=== PATIENT | male | born 1955 | race Caucasian/White ===

== ENCOUNTER 2018-12-04 10:44 | Observation (INO) ==
--- NOTE | 2018-12-04 11:24 | Emergency Department Note ---
Disposition Clinical Impression: Congestive heart failure Qualifiers: Heart failure type: unspecified Heart failure chronicity: acute on chronic Qualified Code(s): I50.9 - Heart failure, unspecified Disposition: Admitted As Inpatient Condition: Fair Referrals: NONE,PCP [Non-Partnered Physician] - Forms: ED Satisfaction Letter General Adult HPI - General Chief complaint: ED Shortness of Breath/Dyspnea Stated complaint: Pedal edema & short of breath Time Seen by Provider: 12/04/18 11:02 Source: patient Mode of arrival: private vehicle Limitations: other Nursing Notes Reviewed: Yes Vital Signs Reviewed: Yes - History of Present Illness HPI Narrative: Patient presents to the ED complaining of shortness of breath and lower extremity swelling. Patient states his eczema and short of breath for many weeks. He was apparently diagnosed with bronchitis in October. He was seen he re in this ED on November 12 for shortness of breath and diagnosed with a COPD exacerbation and possible pneumonia. He was started on Augmentin which she has since completed. He states he feels like his breathing improved initially but has now worsened again. He is short of breath often even at rest. States he will only have to change positions if you like he can catch his breath. He cannot lie flat for any length of time. He has been using his inhaler without improvement. He reports a dry cough and some occasional sneezing and runny nose. No fever or chills. He notices swelling in his legs starting proximally 10 days ago, first in the left leg and then in the right. He has been taking [id number] water pills over the past several days without improvement. 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 He did see his PCP a few days after his last ER visit and only had trace swelling in the left leg at that time and states his PCP was not concerned. He has also followed up with Dr. Boyle of vascular surgery who is planning on doing a catheterization and possible stent placement in his left leg on 12/12 due to peripheral arterial disease. He said he had a similar procedure performed on the right. He is not aware of a diagnosis of CHF although records show he does have cardiomyopathy. He is not on any prescribed diuretics, only Imdur and metoprolol. Cardiac history is notable for cardiomyopathy and CAD with prior CABG in 2014. He also has an AICD/pacemaker. Pain Scale: 0 - Related Data Home Medications Medication Instructions Recorded Confirmed Duloxetine HCl [Cymbalta] 60 mg PO DAILY 04/21/15 12/04/18 Glimepiride [Amaryl] 4 mg PO BID 04/21/15 12/04/18 Loratadine [Claritin] 10 mg PO DAILY 04/21/15 12/04/18 Oxaprozin [Daypro] 600 mg PO TID PRN 04/21/15 12/04/18 OxyCODONE Immed Rel [Roxicodone] 10 - 325 mg PO Q8HR PRN 04/21/15 12/04/18 Promethazine [Phenergan] 25 mg PO Q6HR PRN 04/21/15 12/04/18 Zolpidem [Ambien] 10 mg PO HS PRN 04/21/15 12/04/18 Fluticasone Propionate Nasal 1 spray NS DAILY PRN 04/24/15 12/04/18 [Flonase] Aspirin Enteric Coated [Aspirin EC] 325 mg PO DAILY 07/23/15 12/04/18 Metoprolol XL (24 HR) Succ [Toprol 100 mg PO BID 07/23/15 12/04/18 Xl] Clopidogrel [Plavix] 75 mg PO DAILY 03/09/17 12/04/18 Dulaglutide [Trulicity] 0.75 mg SQ QWEEK 03/09/17 12/04/18 Isosorbide MONOnitrate (24 HR) 30 mg PO DAILY 06/14/17 12/04/18 [Imdur] Nitroglycerin [Nitrostat] 0.4 mg SL Q3-5MIN PRN 06/14/17 12/04/18 Pregabalin [Lyrica] 75 mg PO BID 06/14/17 12/04/18 Tamsulosin HCl [Flomax] 0.4 mg PO DAILY 06/14/17 12/04/18 Tizanidine HCl [Zanaflex] 1 - 2 tab PO TID PRN 06/14/17 12/04/18 Albuterol Sulfate [Ventolin Hfa] 2 puff IH Q4H 12/06/17 12/04/18 Anagrelide HCl [Agrylin] 0.5 mg PO DAILY 12/06/17 12/04/18 Atorvastatin Calcium [Lipitor] 20 mg PO DAILY 12/06/17 12/04/18 Calcipotriene/Betamethasone 60 gm TP DAILY PRN 12/06/17 12/04/18 [Taclonex 0.005%-0.064% Suspens] Hydroxyurea [Hydrea] 500 mg PO BID 12/06/17 12/04/18 Amoxicillin/Clavulanate [Augmentin] 875 mg PO BIDWM 12/04/18 12/04/18 Previous Rx's Medication Instructions Recorded Metformin HCl [Fortamet] 1,000 mg PO BID #0 06/14/17 Guaifenesin [Mucinex] 1,200 mg PO BID #20 tbbp.12hr 11/12/18 Allergies Allergy/AdvReac Type Severity Reaction Status Date / Time gabapentin AdvReac Confusion Verified 12/27/17 11:34 Constitutional: Denies: fever, chills, weakness, weight change Eyes: Denies: eye pain, eye discharge, vision change ENT ED: Denies: ear pain, throat pain, dental pain, hearing loss, epistaxis, congestion, dysphagia Cardiovascular: Reports: edema. Denies: chest pain, palpitations, dyspnea on exertion, syncope Respiratory: Reports: dyspnea. Denies: cough, wheezes, hemoptysis, stridor Gastrointestinal: Denies: abdominal pain, nausea, vomiting, diarrhea, constipation, hematemesis, melena, hematochezia Genitourinary: Denies: urgency, dysuria, frequency, hematuria Musculoskeletal: Denies: back pain, neck pain, arthralgia, myalgia Integumentary: Denies: rash, abrasion, lesions Neurological: Denies: headache, weakness, numbness, paresthesias, confusion, abnormal gait, vertigo Psychiatric: Denies: anxiety, depression, suicidal thoughts, homicidal thoughts, auditory hallucinations, visual hallucinations Endocrine: Denies: fatigue Hematological/Lymphatic: Denies: easy bleeding, easy bruising Allergic/Immunologic: Denies: facial swelling, urticaria Past Medical History - Past Medical History Medical history: Reports: arthritis, cardiomyopathy, COPD, coronary artery disease, diabetes, GERD, hyperlipidemia, hypertension, malignancy, myocardial infarction, osteoporosis, peripheral artery disease, renal disease, other Surgical history: Reports: coronary bypass (CABG), orthopedic, other (Back surgery, knee surgery, right shoulder surgery), pacemaker/AICD, other Psychiatric history: Reports: anxiety, depression, panic disorder - Social History Smoking Status: Heavy tobacco smoker Smokeless Tobacco Status: Yes (occasional) Alcohol use: Reports: rarely Drug use: Reports: none Physical Exam - General Limitations: other General appearance: alert, in no apparent distress - Head Head exam: atraumatic, normocephalic, normal inspection - Eye Eye exam: Present: normal appearance, PERRL, EOMI - ENT ENT exam: normal exam, normal oropharynx, mucous membranes moist - Neck Neck exam: Present: normal inspection, full ROM, trachea midline - Chest Chest inspection: Present: normal inspection, symmetric chest wall rise - Respiratory Respiratory exam: Present: other (crackles at bases) - Cardiovascular Cardiovascular exam: Present: regular rate, normal rhythm, normal heart sounds - Abdominal Exam Abdominal exam: Present: soft, Non-Tender. Absent: tenderness, distention, guarding, rebound, rigidity - Extremities Exam Extremities exam: Present: normal inspection, full ROM, pedal edema (2+ oxana aterally). Absent: tenderness - Psychiatric Psychiatric exam: Present: normal affect, normal mood - Skin Skin exam: Present: warm, dry, intact, normal color Course Course Narrative: Patient presents to the ED with chronic shortness of breath that has been worsening recently new onset lower extremity edema concerning for CHF given patient's history and clinical picture.. On arrival he is afebrile, hemodynamic stable and nontoxic in appearance. Review of records shows his last echo and cardiac catheterization were both in April 2015 which were followed by his CABG 5. At that time echo showed an EF of 35% with left ventricular dilatation and global hypokinesis. An echo in November 2016 shows an EF of 30% with severe LV systolic dysfunction mild diastolic LV dysfunction and moderate LV dilatation. Will obtain chest x-ray, EKG and lab work. Suspect patient will likely need admission for diuresis. - Reevaluation(s) Reevaluation #1: Chest x-ray does show pleural effusions and pulmonary edema. BNP is over thousand. Troponin slightly elevated at 0.04 patient has no chest pain I suspect this is simple strain from congestive heart failure. EKG does not show any ischemic changes. Discussed with patient the need for admission and IV diuresis and he is in agreement. I spoke to hospice vocational evaluator, Dr. Hayes who has agreed to admit the patient. Time: 12:39 Vital Signs Temperature 97.3 F L 12/04/18 10:47 Pulse Rate 103 12/04/18 10:47 Respiratory Rate 18 12/04/18 10:47 Blood Pressure 133/82 12/04/18 10:47 O2 Sat by Pulse Oximetry 95 12/04/18 10:47 Temperature 97.3 F L 12/04/18 10:47 Pulse Rate 99 12/04/18 11:05 Respiratory Rate 16 12/04/18 11:05 Blood Pressure 122/89 12/04/18 11:05 O2 Sat by Pulse Oximetry 96 12/04/18 11:05 Oxygen Delivery Oxygen Delivery Room Air Medical Decision Making - Medical Records Medical records reviewed: Yes I reviewed the patient's medical records. - Lab Data Lab results reviewed: Yes I reviewed the patient's lab results. Result diagrams: 12/04/18 11:39 12/04/18 11:39 Lab Results 12/04/18 12/04/18 12/04/18 Range/Units 11:39 11:39 11:39 WBC 8.2 (4.3-11.1) K/mcL RBC 5.49 (4.19-5.50) M/mcL Hgb 16.7 (12.9-16.9) g/dL Hct 49.3 (37.5-50.1) % MCV 89.8 (83.0-100.0) fL MCH 30.4 (28.0-33.3) pg MCHC 33.9 (31.6-35.5) g/dL RDW 13.3 (11.5-14.5) % Plt Count 269 (140-400) K/mcL MPV 10.1 (9.4-12.4) fL Immature Gran % 0.5 (0-4) % Seg Neutrophils % 76.2 % Lymphocytes % 15.2 % Monocytes % 6.7 % Eosinophils % 0.9 % Basophils % 0.5 % Neutrophils # 6.3 (1.6-8.9) K/mcL Lymphocytes # 1.3 (0.6-4.6) K/mcL Monocytes # 0.6 (0.0-1.3) K/mcL Eosinophils # 0.1 (0.0-0.6) K/mcL Basophils # 0.0 (0.0-0.2) K/mcL Sodium 128 L (136-145) mEq/L Potassium 4.9 (3.5-5.1) mEq/L Chloride 95 L (98-107) mEq/L Carbon Dioxide 25 (23-29) mEq/L BUN 15 (8-23) mg/dL Creatinine 0.93 (0.70-1.30) mg/dL Est GFR ( Amer) > 60 (> 60) Est GFR (Non-Af Amer) > 60 (> 60) BUN/Creatinine Ratio 16 (6-26) Glucose 351 H (70-105) mg/dL Calculated Osmolality 281 (280-300) Calcium 9.3 (8.6-10.3) mg/dL Troponin I 0.04 H* (< 0.04) ng/mL B-Natriuretic Peptide (Less than 100) pg/mL 12/04/18 Range/Units 11:39 WBC (4.3-11.1) K/mcL RBC (4.19-5.50) M/mcL Hgb (12.9-16.9) g/dL Hct (37.5-50.1) % MCV (83.0-100.0) fL MCH (28.0-33.3) pg MCHC (31.6-35.5) g/dL RDW (11.5-14.5) % Plt Count (140-400) K/mcL MPV (9.4-12.4) fL Immature Gran % (0-4) % Seg Neutrophils % % Lymphocytes % % Monocytes % % Eosinophils % % Basophils % % Neutrophils # (1.6-8.9) K/mcL Lymphocytes # (0.6-4.6) K/mcL Monocytes # (0.0-1.3) K/mcL Eosinophils # (0.0-0.6) K/mcL Basophils # (0.0-0.2) K/mcL Sodium (136-145) mEq/L Potassium (3.5-5.1) mEq/L Chloride (98-107) mEq/L Carbon Dioxide (23-29) mEq/L BUN (8-23) mg/dL Creatinine (0.70-1.30) mg/dL Est GFR ( Amer) (> 60) Est GFR (Non-Af Amer) (> 60) BUN/Creatinine Ratio (6-26) Glucose (70-105) mg/dL Calculated Osmolality (280-300) Calcium (8.6-10.3) mg/dL Troponin I (< 0.04) ng/mL B-Natriuretic Peptide 1405 H (Less than 100) pg/mL - Radiology Data Radiology results reviewed: Yes I reviewed the patient's radiology results. ITS Impressions Chest X-Ray 12/04/18 11:23 IMPRESSION: No substantial change from 11/12/2018. Pulmonary edema suspected with right larger than left pleural effusions. D/ / Chacho Hall MD / Chacho Hall MD Interpreting Provider: Chacho Hall MD - EKG Data EKG #1 EKG attestation: Yes I reviewed and interpreted this EKG. EKG shows normal: sinus rhythm Rate: normal Rhythm: NSR When compared to previous EKG there are: no significant changes
[2018-12-04 11:49] LABS: Basophils % 0.5 %; Eosinophils # 0.1 K/mcL (0.0-0.6); Eosinophils % 0.9 %; Hematocrit 49.3 % (37.5-50.1); Hemoglobin 16.7 g/dL (12.9-16.9); Immature Granulocytes % 0.5 % (0-4); Lymphocytes # 1.3 K/mcL (0.6-4.6); Lymphocytes % 15.2 %; Mean Corpuscular HGB Conc 33.9 g/dL (31.6-35.5); Mean Corpuscular Hemoglobin 30.4 pg (28.0-33.3); Mean Corpuscular Volume 89.8 fL (83.0-100.0); Mean Platelet Volume 10.1 fL (9.4-12.4); Monocytes # 0.6 K/mcL (0.0-1.3); Monocytes % 6.7 %; Neutrophils # 6.3 K/mcL (1.6-8.9); Platelet Count 269 K/mcL (140-400); Red Blood Count 5.49 M/mcL (4.19-5.50); Red Cell Distribution Width 13.3 % (11.5-14.5); Segmented Neutrophils % 76.2 %
[2018-12-04 12:36] LABS: BUN/Creatinine Ratio 16 (6-26); Blood Urea Nitrogen 15 mg/dL (8-23); Calcium 9.3 mg/dL (8.6-10.3); Carbon Dioxide 25 mEq/L (23-29); Chloride 95 mEq/L (98-107); Glucose 351 mg/dL (70-105); Osmolality,Calculated 281 (280-300); Potassium 4.9 mEq/L (3.5-5.1); Sodium 128 mEq/L (136-145); eGFR For Non-African Americans > 60 (> 60)
[2018-12-04] MEDS ORDERED: Naloxone 0.4 MG/ML INJ IVP PRN ×2 (12:44→16:08)
[2018-12-04] MEDS ORDERED: Furosemide 20 MG/2 ML VIAL IVP ONE (12:45)
[2018-12-04] MEDS ORDERED: D5% in Water 1,000 ML IVC PRN ×2 (12:51→16:08)
[2018-12-04] MEDS ORDERED: *HR* Dextrose 50 % in Water (Syg) 50 ML SYRINGE IVP PRN (12:51)
[2018-12-04] MEDS ORDERED: Dextrose Gel 15 GM/37.5 ML TUBE PO PRN ×4 (12:51→16:08)
[2018-12-04] MEDS ORDERED: Diclofenac Sodium (24 HR) 100 MG TABLET PO PRN (16:08)
[2018-12-04] MEDS ORDERED: BETAMETHASONE TP PRN (16:08)
[2018-12-04] MEDS ORDERED: *HR* OxyCODONE Immed Rel 15 MG TABLET PO PRN (16:08)
[2018-12-04] MEDS ORDERED: Dulaglutide [Trulicity] 0.75 MG SQ SCH (16:08)
[2018-12-04] MEDS ORDERED: *HR* Dextrose 50 % in Water (Vial) 50 ML VIAL IVP PRN (16:08)
[2018-12-04] MEDS ORDERED: Fluticasone Propionate Nasal 50 MCG/SPRAY BOTTLE NS PRN (16:08)
[2018-12-04] MEDS ORDERED: CALCIPOTRIENE TP PRN (16:08)
[2018-12-04] MEDS ORDERED: Nitroglycerin 0.4 MG TAB.SUBL SL SCH (16:08)
--- NOTE | 2018-12-04 16:18 | Electrocardiograph Report ---
[place] [id number] Test Date: 2018-12-04 Pat Name: Lisette Oliver Department: EDP-12 Room: [facility] Gender: M [employer]visor [employer]: : 1955 Requested By: Jennifer Palacios Order Number: [id number] Reading MD: Gabriela Burr Measurements Intervals [place] Rate: 98 P: 47 [place]: 175 QRS: 88 QRSD: 102 T: 106 QT: 354 QTc: 452 Interpretive Statements Sinus rhythm Borderline right axis deviation Probable LVH with secondary repol abnrm Electronically Signed On 12-04-2018 16:17:25 EDT by Gabriela Burr
[2018-12-04] MEDS ORDERED: Insulin LISPRO 300 UNITS/3 ML VIAL SQ SCH ×3 (16:30→21:00)
[2018-12-04] MEDS: Insulin LISPRO 300 UNITS/3 ML VIAL SQ SCH (18:03)
[2018-12-04] MEDS ORDERED: *HR* OxyCODONE/APAP 10/325 TABLET PO PRN (20:03)
--- NOTE | 2018-12-04 20:15 | Internal Med History&Physical ---
Date of Encounter: 12/04/18 Time of Encounter: 19:30 Assessment and Plan (1) Congestive heart failure Current visit: Yes Status: Acute He will be restarted on Toprol. IV diuretics have been ordered. I educated him on the importance of compliance with medication regimen. Qualifiers: Heart failure type: combined systolic and diastolic Heart failure chronicity: acute on chronic Qualified Code(s): I50.43 - Acute on chronic combined systolic (congestive) and diastolic (congestive) heart failure (2) Ischemic cardiomyopathy Current visit: No Status: Chronic Status post ICD placement. Acute intervention as above. (3) CAD (coronary artery disease) Current visit: Yes Status: Chronic Restart aspirin, Plavix, and Toprol. Qualifiers: Coronary Disease-Associated Artery/Lesion type: [place] artery [place] vs. transplanted heart: [place] heart Associated angina: without angina Qualified Code(s): I25.10 - Atherosclerotic heart disease of [place] coronary artery without angina pectoris (4) COPD (chronic obstructive pulmonary disease) Current visit: Yes Status: Chronic Presumed. Room air oximetry will be checked on 6 minute walk prior to discharge. Qualifiers: COPD type: unspecified COPD Qualified Code(s): J44.9 - Chronic obstructive pulmonary disease, unspecified (5) Diabetes mellitus Current visit: No Status: Chronic Hemoglobin A1c was elevated at 11.5 on 10/31/2018. Continue Amaryl. He states he has not used Trulicity in over a year. Qualifiers: Diabetes mellitus type: type 2 Diabetes mellitus manager intermediate insulin use: with manager intermediate use Diabetes mellitus complication status: with other specified complication Qualified Code(s): E11.69 - Type 2 diabetes mellitus with other specified complication; Z79.4 - halfway (current) use of insulin Internal Medicine - H&P: HPI Chief complaint: Dyspnea, edema Admitted From: Emergency Dept Plans for Post Hospital Care: Home History of present illness: Mr. Oliver is a 63 year old male who came to emergency room stating he had increasing edema onset approximately 2 weeks ago. It initially started in his left leg but he noted in his right leg over the past 2-3 days. He has had gradually increasing dyspnea on exertion for approximately one year. He admits he has not taken prescribed medications as directed and has been very nonco mpliant for several months. He was evaluated in emergency room and was found to have evidence of heart failure with bilateral pleural effusions and edema. [facility]. Cardiac history is pertinent for known ASHD status post 5 vessel CABG April 2015. He has had ICD placement 2014 for cardiomyopathy with LVEF of 30% on echocardiogram 11/29/2016. The LVEF was unchanged from previous echo July 2015. The interventricular septum and posterior wall thickness measurements were elevated at 1.52 and 1.17 cm respectively. E/A ratio was 0.6. There was mild mitral regurgitation mild tricuspid regurgitation. Estimated RVSP was normal at 27 mmHg. He denies DVT or pulmonary embolus. He has known ASPVD and follows with vascular surgery at [facility]. Past Med Surg Social Fam HX - Past Medical History Medical history: arthritis, cardiomyopathy, COPD, coronary artery disease, diabetes, GERD, hyperlipidemia, hypertension, malignancy, myocardial infarction, osteoporosis, peripheral artery disease, renal disease, other Additional medical history: Fibromyagia, Chronic bronchitis, Irregular HR, BPH, Neuropathy, DDD, Smoker Psychiatric history: anxiety, depression, panic disorder - Past Surgical History Surgical History: coronary bypass (CABG), orthopedic, other, pacemaker/AICD, other Additional surgical history: back. right shoulder X 8 - Social History Smoking Status: Heavy tobacco smoker Smokeless Tobacco Status: Yes (occasional) Alcohol use: rarely Drug use: none - Family History Father Living Status: Still Living Hx Family Cardiac Disorders: Yes Hx Family Respiratory Disorders: No Hx Family Cancer: No Hx Family GI Disorders: No Hx Family Endocrine Disorder: Yes (DM) Hx Family Neuromuscular Disorders: Yes (Back sx x5, arthritis, DDD) Hx Family Neurologic Disorders: No Hx Family HEENT Disorders: No Hx Family Autoimmune Disorders: No Mother Living Status: Still Living Hx Family Cardiac Disorders: Yes (Pacer) Hx Family Cancer: Yes (Spine, Bone) Hx Family Endocrine Disorder: Yes (DM) Internal Medicine - H&P: Meds Duloxetine HCl [Cymbalta] 60 mg PO DAILY 04/21/15 [History] Glimepiride [Amaryl] 4 mg PO BID 04/21/15 [History] Loratadine [Claritin] 10 mg PO DAILY 04/21/15 [History] Oxaprozin [Daypro] 600 mg PO TID PRN 04/21/15 [History] OxyCODONE Immed Rel [Roxicodone] 10 - 325 mg PO Q8HR PRN 04/21/15 [History] Promethazine [Phenergan] 25 mg PO Q6HR PRN 04/21/15 [History] Zolpidem [Ambien] 10 mg PO HS PRN 04/21/15 [History] Fluticasone Propionate Nasal [Flonase] 1 spray NS DAILY PRN 04/24/15 [History] Aspirin Enteric Coated [Aspirin EC] 325 mg PO DAILY 07/23/15 [History] Metoprolol XL (24 HR) Succ [Toprol Xl] 100 mg PO BID 07/23/15 [History] Clopidogrel [Plavix] 75 mg PO DAILY 03/09/17 [History] Dulaglutide [Trulicity] 0.75 mg SQ QWEEK 03/09/17 [History] Isosorbide MONOnitrate (24 HR) [Imdur] 30 mg PO DAILY 06/14/17 [History] Metformin HCl [Fortamet] 1,000 mg PO BID #0 06/14/17 [Rx] Nitroglycerin [Nitrostat] 0.4 mg SL Q3-5MIN PRN 06/14/17 [History] Pregabalin [Lyrica] 75 mg PO BID 06/14/17 [History] Tamsulosin HCl [Flomax] 0.4 mg PO DAILY 06/14/17 [History] Tizanidine HCl [Zanaflex] 1 - 2 tab PO TID PRN 06/14/17 [History] Albuterol Sulfate [Ventolin Hfa] 2 puff IH Q4H 12/06/17 [History] Anagrelide HCl [Agrylin] 0.5 mg PO DAILY 12/06/17 [History] Atorvastatin Calcium [Lipitor] 20 mg PO DAILY 12/06/17 [History] Calcipotriene/Betamethasone [Taclonex 0.005%-0.064% Suspens] 60 gm TP DAILY PRN 12/06/17 [History] Hydroxyurea [Hydrea] 500 mg PO BID 12/06/17 [History] Guaifenesin [Mucinex] 1,200 mg PO BID #20 tbbp.12hr 11/12/18 [Rx] Amoxicillin/Clavulanate [Augmentin] 875 mg PO BIDWM 12/04/18 [History] Allergy/AdvReac Type Severity Reaction Status Date / Time gabapentin AdvReac Confusion Verified 12/27/17 11:34 All Systems PM: A 10-system review of systems was performed and is negative for pertinent findings except as documented above in the HPI. Review of systems: Gen.: His weight has decreased from 94.529 kg on 06/24/2016 to 89.443 kg today. Cardiovascular: As per history of present illness Respiratory: He has smoked since age 19 up to 3-1/2 packs per day. He does not recall PFTs but claims a diagnosis COPD. He does not use home oxygen. He states he was diagnosed with SAHRA but was not prescribed CPAP/BiPAP. GI: He denies disorders of his liver gallbladder or exocrine pancreas : He has BPH and has had urologic intervention (? TUR) in the past. He denies other kidney or bladder disorders. Neurologic: He claims he had a "mini stroke" several years ago without permanent deficits. He denies other large distribution strokes or seizures. Endocrine: He was diagnosed with DM 2 in 1991. He has hyperlipidemia. He states he was prescribed Synthroid in the past but does not take it at this time. Hematology/oncology: He has been diagnosed with PCV. He denies other blood disorders or internal malignancies. Psychiatric: He has anxiety and depression. [place] skeletal: He has history of gout, DJD, right rotator cuff tear with 8 surgeries. He has had resection of the humeral head on the right side. He has had back surgery and right knee surgery. - Constitutional Vitals: Temp Pulse Resp BP Pulse Ox 98.2 F 97 16 109/72 96 12/04/18 18:21 12/04/18 18:21 12/04/18 18:21 12/04/18 18:21 12/04/18 18:21 Exam: Gen.: He is a well-developed well-nourished male resting comfortably in bed who appears in minimal distress at present time HEENT: Head is atraumatic and normocephalic. Eyes: EOMI. There is no scleral icterus. Mouth: Mucosa is moist. Neck: Supple and nontender. There is no thyromegaly or adenopathy noted. Heart: Regular without murmurs gallops or ectopics Lungs: No wheezes or crackles are heard. Breath sounds are diminished bilaterally. Abdomen: Soft and nontender. No masses or guarding are noted. Extremities: He has 1-2+ edema of the dorsum of feet and lower legs bilaterally. He has significant surgical scarring in his right shoulder area. He has a well-healed lower midline back surgery. He has minimal DJD changes of his hands. Neurologic: Mental status: He is talkative and a good historian. Cranial nerves: Smile is symmetric. Forehead wrinkles bilaterally. Tongue protrudes midline. EOMI. Motor: There is no pronator drift. Cerebellar: Finger to nose is intact bilaterally. Skin: Warm and dry Internal Med - H&P Results - Labs CBC & Chem 7: 12/04/18 11:39 12/04/18 11:39 Labs: Short CBC 12/04/18 Range/Units 11:39 WBC 8.2 (4.3-11.1) K/mcL Hgb 16.7 (12.9-16.9) g/dL Hct 49.3 (37.5-50.1) % Plt Count 269 (140-400) K/mcL Neutrophils # 6.3 (1.6-8.9) K/mcL BMP 12/04/18 11:39 Sodium 128 L Potassium 4.9 Chloride 95 L Carbon Dioxide 25 BUN 15 Creatinine 0.93 Glucose 351 H Calcium 9.3 Cardiac Enzymes 12/04/18 Range/Units 11:39 Troponin I 0.04 H* (< 0.04) ng/mL - Impressions ITS Impressions Chest X-Ray 12/04/18 11:23 IMPRESSION: No substantial change from 11/12/2018. Pulmonary edema suspected with right larger than left pleural effusions. D/ / Chacho Hall MD / Chacho Hall MD Interpreting Provider: Chacho Hall MD - VTE Reasons for not Prescribing Prophylaxis: Treatment not Indicated - Low risk for VTE
[2018-12-04] MEDS ORDERED: *HR* Glimepiride 4 MG TABLET PO SCH (21:00)
[2018-12-04] MEDS ORDERED: Pregabalin 75 MG CAPSULE PO SCH (21:00)
[2018-12-04] MEDS ORDERED: Metoprolol XL (24 HR) Succ 50 MG TAB.ER.24H PO SCH (21:00)
[2018-12-04] MEDS ORDERED: Hydroxyurea 500 MG CAPSULE PO SCH (21:00)
[2018-12-04] MEDS ORDERED: *HR* Glimepiride 2 MG TABLET PO SCH (21:00)
[2018-12-04] MEDS: Furosemide 40 MG/4 ML VIAL IVP SCH (21:11)
[2018-12-04] MEDS: *HR* Metformin 500 MG TABLET PO SCH (21:18)
[2018-12-05 04:05] VITALS: BP 102/62
[2018-12-05 06:09] LABS: Basophils % 0.5 %; Eosinophils # 0.1 K/mcL (0.0-0.6); Eosinophils % 1.5 %; Hematocrit 47.1 % (37.5-50.1); Immature Granulocytes % 0.5 % (0-4); Lymphocytes # 1.4 K/mcL (0.6-4.6); Lymphocytes % 17.5 %; Mean Corpuscular Hemoglobin 29.9 pg (28.0-33.3); Mean Platelet Volume 10.4 fL (9.4-12.4); Monocytes # 0.6 K/mcL (0.0-1.3); Monocytes % 8.1 %; Neutrophils # 5.7 K/mcL (1.6-8.9); Platelet Count 291 K/mcL (140-400); Red Blood Count 5.35 M/mcL (4.19-5.50); Red Cell Distribution Width 13.3 % (11.5-14.5); Segmented Neutrophils % 71.9 %
[2018-12-05 06:34] LABS: Alanine Aminotransferase 22 Units/L (7-52); Albumin 3.7 g/dL (3.5-5.7); Albumin/Globulin Ratio 1.5 (1.1-2.2); Alkaline Phosphatase 99 Units/L (34-104); Aspartate Amino Transferase 14 Units/L (13-39); BUN/Creatinine Ratio 20 (6-26); Bilirubin,Total 0.6 mg/dL (0.3-1.0); Blood Urea Nitrogen 21 mg/dL (8-23); Calcium 8.9 mg/dL (8.6-10.3); Carbon Dioxide 26 mEq/L (23-29); Chloride 95 mEq/L (98-107); Chol/HDL Ratio 3.7 (0-4.9); Cholesterol 147 mg/dL (< 200); Globulin 2.4 g/dL (2.4-3.5); Glucose 301 mg/dL (70-105); HDL Cholesterol 40 mg/dL (40-59); LDL Cholesterol,Calculated 87 mg/dL (0-99); Osmolality,Calculated 284 (280-300); Potassium 4.2 mEq/L (3.5-5.1); Sodium 130 mEq/L (136-145); Total Protein 6.1 g/dL (6.4-8.9); Triglycerides 100 mg/dL (< 150); eGFR For Non-African Americans > 60 (> 60)
[2018-12-05] MEDS ORDERED: *HR* Glimepiride 2 MG TABLET PO SCH (07:30)
[2018-12-05] MEDS: *HR* Metformin 500 MG TABLET PO SCH (08:18)
[2018-12-05] MEDS: Furosemide 40 MG/4 ML VIAL IVP SCH (08:19)
[2018-12-05] MEDS: Insulin LISPRO 300 UNITS/3 ML VIAL SQ SCH (08:26)
[2018-12-05] MEDS ORDERED: Aspirin Enteric Coated 81 MG Tablet PO SCH (09:00)
[2018-12-05] MEDS ORDERED: Isosorbide MONOnitrate (24 HR) 30 MG TAB.ER.24H PO SCH (09:00)
[2018-12-05] MEDS ORDERED: ANAGRELIDE HCL 0.5 MG PO SCH (09:00)
[2018-12-05] MEDS ORDERED: Metoprolol XL (24 HR) Succ 50 MG TAB.ER.24H PO SCH (09:00)
[2018-12-05] MEDS ORDERED: Loratadine 10 MG TABLET PO SCH (09:00)
[2018-12-05] MEDS ORDERED: Aspirin Enteric Coated 325 MG Tablet PO SCH (09:00)
--- NOTE | 2018-12-05 09:44 | Discharge Summary ---
Date of Encounter: 12/05/18 Time of Encounter: 09:25 - Discharge Diagnosis (1) Congestive heart failure Priority: Primary Status: Acute Qualifiers: Heart failure type: combined systolic and diastolic Heart failure chronicity: acute on chronic Qualified Code(s): I50.43 - Acute on chronic combined systolic (congestive) and diastolic (congestive) heart failure (2) Ischemic cardiomyopathy Priority: Secondary Status: Chronic (3) CAD (coronary artery disease) Priority: Secondary Status: Chronic Qualifiers: Coronary Disease-Associated Artery/Lesion type: ruby artery [place] vs. 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 Oliver is a 63 year old male who came to emergency room stating he had increasing edema onset approximately 2 weeks ago. It initially started in his left leg but he noted in his right leg over the past 2-3 days. He has had gradually increasing dyspnea on exertion for approximately one year. He admits he has not taken prescribed medications as directed and has been very noncompliant for several months. He was evaluated in emergency room and was found to have evidence of heart failure with bilateral pleural effusions and edema. He was admitted to [facility] for ongoing care needs. Initial orders were written by the emergency room physician. I saw him on December 04 and performed the history and physical. He was started on Toprol XL at a dose of 50 mg daily. IV Lasix was given. Aspirin and Plavix were given. BN pe ptide decreased to 1199 on December 05. When I saw him on December 05 he stated he felt significantly improved and wished to be discharged home. I instructed him again about the importance of taking his prescribed medications as directed. Room air oximetry will be checked on 6 minute walk prior to discharge. I encouraged him to become a nonsmoker. He will follow with his PCP Dr. Washington within 1 week. - Time Spent with Patient Total time spent providing and/or coordinating discharge services: - Discharge Medications Prescriptions: New Aspirin Enteric Coated [Aspirin EC] 81 mg PO DAILY tablet.dr Wildmetanide [Bumex] 1 mg PO DAILY #30 tablet Glimepiride [Amaryl] 4 mg PO BID #120 tablet Metoprolol XL (24 HR) Succ [Toprol Xl] 50 mg PO DAILY #30 tab.er.24h Continue Zolpidem [Ambien] 10 mg PO HS PRN PRN Reason: Insomnia Oxaprozin [Daypro] 600 mg PO TID PRN PRN Reason: Pain Glimepiride [Amaryl] 4 mg PO BID Promethazine [Phenergan] 25 mg PO Q6HR PRN PRN Reason: Nausea OxyCODONE Immed Rel [Roxicodone] 10 - 325 mg PO Q8HR PRN PRN Reason: Moderate Pain Duloxetine HCl [Cymbalta] 60 mg PO DAILY Loratadine [Claritin] 10 mg PO DAILY Fluticasone Propionate Nasal [Flonase] 1 spray NS DAILY PRN PRN Reason: Allergy Symptoms Dulaglutide [Trulicity] 0.75 mg SQ QWEEK Isosorbide MONOnitrate (24 HR) [Imdur] 30 mg PO DAILY Pregabalin [Lyrica] 75 mg PO BID Tizanidine HCl [Zanaflex] 1 - 2 tab PO TID PRN PRN Reason: Spasms Tamsulosin HCl [Flomax] 0.4 mg PO DAILY Nitroglycerin [Nitrostat] 0.4 mg SL Q3-5MIN PRN PRN Reason: Chest Pain Hydroxyurea [Hydrea] 500 mg PO BID Atorvastatin Calcium [Lipitor] 20 mg PO DAILY Calcipotriene/Betamethasone [Taclonex 0.005%-0.064% Suspens] 60 gm TP DAILY PRN PRN Reason: Skin Irritation Albuterol Sulfate [Ventolin Hfa] 2 puff IH Q4H Anagrelide HCl [Agrylin] 0.5 mg PO DAILY Guaifenesin [Mucinex] 1,200 mg PO BID #20 tbbp.12hr Amoxicillin/Clavulanate [Augmentin] 875 mg PO BIDWM Metformin HCl [Fortamet] 1,000 mg PO BID #60 tab.er.24 Clopidogrel [Plavix] 75 mg PO DAILY #30 tablet Discontinued Aspirin Enteric Coated [Aspirin EC] 325 mg PO DAILY Metoprolol XL (24 HR) Succ [Toprol Xl] 100 mg PO BID Home Medications: Duloxetine HCl [Cymbalta] 60 mg PO DAILY 04/21/15 [History] Glimepiride [Amaryl] 4 mg PO BID 04/21/15 [History] Loratadine [Claritin] 10 mg PO DAILY 04/21/15 [History] Oxaprozin [Daypro] 600 mg PO TID PRN 04/21/15 [History] OxyCODONE Immed Rel [Roxicodone] 10 - 325 mg PO Q8HR PRN 04/21/15 [History] Promethazine [Phenergan] 25 mg PO Q6HR PRN 04/21/15 [History] Zolpidem [Ambien] 10 mg PO HS PRN 04/21/15 [History] Fluticasone Propionate Nasal [Flonase] 1 spray NS DAILY PRN 04/24/15 [History] Dulaglutide [Trulicity] 0.75 mg SQ QWEEK 03/09/17 [History] Isosorbide MONOnitrate (24 HR) [Imdur] 30 mg PO DAILY 06/14/17 [History] Nitroglycerin [Nitrostat] 0.4 mg SL Q3-5MIN PRN 06/14/17 [History] Pregabalin [Lyrica] 75 mg PO BID 06/14/17 [History] Tamsulosin HCl [Flomax] 0.4 mg PO DAILY 06/14/17 [History] Tizanidine HCl [Zanaflex] 1 - 2 tab PO TID PRN 06/14/17 [History] Albuterol Sulfate [Ventolin Hfa] 2 puff IH Q4H 12/06/17 [History] Anagrelide HCl [Agrylin] 0.5 mg PO DAILY 12/06/17 [History] Atorvastatin Calcium [Lipitor] 20 mg PO DAILY 12/06/17 [History] Calcipotriene/Betamethasone [Taclonex 0.005%-0.064% Suspens] 60 gm TP DAILY PRN 12/06/17 [History] Hydroxyurea [Hydrea] 500 mg PO BID 12/06/17 [History] Guaifenesin [Mucinex] 1,200 mg PO BID #20 tbbp.12hr 11/12/18 [Rx] Amoxicillin/Clavulanate [Augmentin] 875 mg PO BIDWM 12/04/18 [History] Aspirin Enteric Coated [Aspirin EC] 81 mg PO DAILY tablet. 12/05/18 [Rx] Bumetanide [Bumex] 1 mg PO DAILY #30 tablet 12/05/18 [Rx] Clopidogrel [Plavix] 75 mg PO DAILY #30 tablet 12/05/18 [Rx] Glimepiride [Amaryl] 4 mg PO BID #120 tablet 12/05/18 [Rx] Metformin HCl [Fortamet] 1,000 mg PO BID #60 tab.er.24 12/05/18 [Rx] Metoprolol XL (24 HR) Succ [Toprol Xl] 50 mg PO DAILY #30 tab.er.24h 12/05/18 [Rx] Allergies/Adverse Reactions: Allergy/AdvReac Type Severity Reaction Status Date / Time gabapentin AdvReac Confusion Verified 12/27/17 11:34 Date of admission: 12/04/18 15:04 Primary care physician: Nishant Washington MD - Constitutional Vitals: Temp Pulse Resp BP Pulse Ox 98.3 F 96 18 102/62 92 12/05/18 04:03 12/05/18 04:03 12/05/18 07:41 12/05/18 04:03 12/05/18 07:41 - Patient Status Disposition: Home, Self-Care Condition: Fair - Discharge Instructions Follow Up With: Nishant Washington MD [Primary Care Provider] - 1 week - Diet and Activity Activity: resume usual activities as tolerated Diet: advance to your usual diet - VTE Reasons for not Prescribing Prophylaxis: Treatment not Indicated - Low risk for VTE
== END 2018-12-05 10:40 | disposition home or self-care (01) ==
LOC: EMEROOPIK 10:44 → INPPIK 10:44
PROVIDERS: ADMIT Internal Medicine; ATTEND Internal Medicine

== ENCOUNTER 2022-02-01 12:05 | Observation (INO) ==
[2022-02-01 14:10] LABS: Bilirubin,Urine Negative (Negative); Blood,Urine Trace-lysed (Negative); Clarity,Urine Clear (Clear); Color,Urine Yellow (Yellow); Glucose,Urine (UA) Normal (Normal); Ketones,Urine Negative (Negative); Leukocyte Esterase,Urine Negative (Negative); Nitrite,Urine Negative (Negative); PH,Urine 6.5 pH Units (5.0-8.0); Protein,Urine 100 mg/dL (Neg-Trace); Urobilinogen,Urine Normal (Normal)
[2022-02-01 14:15] LABS: Basophils # 0.1 K/mcL (0.0-0.2); Basophils % 0.7 %; Eosinophils # 0.1 K/mcL (0.0-0.6); Eosinophils % 0.9 %; Hematocrit 37.5 % (37.5-50.1); Hemoglobin 12.3 g/dL (12.9-16.9); Immature Granulocytes % 0.8 % (0-4); Lymphocytes # 1.3 K/mcL (0.6-4.6); Lymphocytes % 10.3 %; Mean Corpuscular HGB Conc 32.8 g/dL (31.6-35.5); Mean Corpuscular Hemoglobin 26.5 pg (28.0-33.3); Mean Corpuscular Volume 80.6 fL (83.0-100.0); Mean Platelet Volume 9.7 fL (9.4-12.4); Monocytes # 0.9 K/mcL (0.0-1.3); Monocytes % 7.3 %; Neutrophils # 9.7 K/mcL (1.6-8.9); Platelet Count 629 K/mcL (140-400); Red Blood Count 4.65 M/mcL (4.19-5.50); White Blood Count 12.1 K/mcL (4.3-11.1)
[2022-02-01 14:16] LABS: RBC,Urine 0-3 per hpf (0-3); WBC,Urine 0-3 per hpf (0-3)
[2022-02-01 14:47] LABS: BUN/Creatinine Ratio 23 (6-26); Blood Urea Nitrogen 32 mg/dL (8-23); Calcium 8.4 mg/dL (8.6-10.3); Carbon Dioxide 27 mEq/L (23-29); Chloride 83 mEq/L (98-107); Glucose 122 mg/dL (70-105); Osmolality,Calculated 250 (280-300); Potassium 5.4 mEq/L (3.5-5.1); Sodium 116 mEq/L (136-145); eGFR For African Americans > 60 (> 60); eGFR For Non-African Americans 52 (> 60)
[2022-02-01] MEDS ORDERED: 0.9 % Sodium Chloride 500 ML IVC ONE (14:47)
[2022-02-01] MEDS ORDERED: 0.9 % Sodium Chloride 1,000 ML IVC SCH (15:00)
[2022-02-01] MEDS ORDERED: Fluticasone Propionate Nasal 50 MCG/SPRAY BOTTLE NS PRN (16:02)
[2022-02-01] MEDS ORDERED: Naloxone 0.4 MG/ML INJ IVP PRN (16:02)
[2022-02-01] MEDS ORDERED: *HR* OxyCODONE/APAP 10/325 TABLET PO PRN (16:08)
[2022-02-01] MEDS ORDERED: Nitroglycerin 0.4 MG TAB.SUBL SL PRN (16:08)
[2022-02-01] MEDS ORDERED: tiZANidine 4 MG TABLET PO PRN (16:08)
[2022-02-01] MEDS: *HR* Heparin 5,000 UNIT/ML VIAL SQ SCH (18:45)
[2022-02-01] MEDS: Metoprolol XL (24 HR) Succ 50 MG TAB.ER.24H PO SCH (20:45)
[2022-02-01] MEDS: Diclofenac Sodium (DR) 50 MG TABLET.DR PO SCH (20:45)
[2022-02-01] MEDS: Budesonide/Formoterol 160/4.5 1 PUFF INH IH SCH (22:03)
[2022-02-01] MEDS ORDERED: Calcium Gluconate 1gm/50mL 1 GM/50 ML BAG IVPB ONE (23:31)
[2022-02-02] MEDS: *HR* Heparin 5,000 UNIT/ML VIAL SQ SCH ×2 (05:44→16:50)
[2022-02-02 07:36] LABS: Basophils # 0.1 K/mcL (0.0-0.2); Basophils % 0.8 %; Eosinophils # 0.2 K/mcL (0.0-0.6); Eosinophils % 1.4 %; Hematocrit 37.9 % (37.5-50.1); Hemoglobin 12.3 g/dL (12.9-16.9); Immature Granulocytes % 0.8 % (0-4); Mean Corpuscular HGB Conc 32.5 g/dL (31.6-35.5); Mean Corpuscular Hemoglobin 26.3 pg (28.0-33.3); Mean Corpuscular Volume 81.2 fL (83.0-100.0); Mean Platelet Volume 9.8 fL (9.4-12.4); Monocytes # 1.1 K/mcL (0.0-1.3); Monocytes % 9.9 %; Neutrophils # 8.3 K/mcL (1.6-8.9); Platelet Count 562 K/mcL (140-400); Red Blood Count 4.67 M/mcL (4.19-5.50); Red Cell Distribution Width 16.1 % (11.5-14.5); Segmented Neutrophils % 78.1 %; White Blood Count 10.6 K/mcL (4.3-11.1)
[2022-02-02 08:01] LABS: BUN/Creatinine Ratio 21 (6-26); Blood Urea Nitrogen 28 mg/dL (8-23); Calcium 8.1 mg/dL (8.6-10.3); Carbon Dioxide 28 mEq/L (23-29); Chloride 85 mEq/L (98-107); Glucose 103 mg/dL (70-105); Osmolality,Calculated 252 (280-300); Potassium 5.2 mEq/L (3.5-5.1); Sodium 118 mEq/L (136-145); eGFR For African Americans > 60 (> 60); eGFR For Non-African Americans 53 (> 60)
[2022-02-02] MEDS ORDERED: 0.9 % Sodium Chloride 1,000 ML IVC SCH ×2 (08:15→22:45)
[2022-02-02] MEDS ORDERED: Pregabalin 25 MG CAPSULE PO SCH (09:00)
[2022-02-02] MEDS: Budesonide/Formoterol 160/4.5 1 PUFF INH IH SCH ×2 (09:13→21:32)
[2022-02-02] MEDS: Tiotropium 10 INH DOSE IH SCH (09:14)
[2022-02-02] MEDS: *HR* GlipiZIDE XL (24 HR) 10 MG TABLET PO SCH (10:45)
[2022-02-02] MEDS: Aspirin Enteric Coated 81 MG Tablet PO SCH (10:45)
[2022-02-02] MEDS: Diclofenac Sodium (DR) 50 MG TABLET.DR PO SCH ×2 (10:45→20:27)
[2022-02-02] MEDS: Isosorbide MONOnitrate (24 HR) 30 MG TAB.ER.24H PO SCH (10:45)
[2022-02-02] MEDS: Loratadine 10 MG TABLET PO SCH (10:46)
[2022-02-02] MEDS: Metoprolol XL (24 HR) Succ 50 MG TAB.ER.24H PO SCH ×2 (10:46→20:26)
[2022-02-02] MEDS: Nicotine 21 MG PATCH.TD24 TD SCH (11:54)
[2022-02-02] MEDS ORDERED: Tolvaptan 15 MG TABLET PO ONE (12:14)
[2022-02-02] MEDS: Pregabalin 25 MG CAPSULE PO SCH (20:26)
[2022-02-03] MEDS: *HR* Heparin 5,000 UNIT/ML VIAL SQ SCH (05:55)
[2022-02-03 06:52] VITALS: BP 136/78; PULSE 63; RESP 16; TEMP 98.7; O2SAT 95
[2022-02-03 08:00] LABS: Basophils # 0.1 K/mcL (0.0-0.2); Basophils % 0.6 %; Eosinophils # 0.1 K/mcL (0.0-0.6); Eosinophils % 1.4 %; Hematocrit 37.1 % (37.5-50.1); Immature Granulocytes % 0.8 % (0-4); Lymphocytes # 0.7 K/mcL (0.6-4.6); Lymphocytes % 6.9 %; Mean Corpuscular HGB Conc 32.3 g/dL (31.6-35.5); Mean Corpuscular Hemoglobin 26.4 pg (28.0-33.3); Mean Corpuscular Volume 81.7 fL (83.0-100.0); Mean Platelet Volume 9.8 fL (9.4-12.4); Monocytes # 0.8 K/mcL (0.0-1.3); Neutrophils # 7.8 K/mcL (1.6-8.9); Platelet Count 503 K/mcL (140-400); Red Blood Count 4.54 M/mcL (4.19-5.50); Red Cell Distribution Width 16.2 % (11.5-14.5); Segmented Neutrophils % 82.3 %; White Blood Count 9.4 K/mcL (4.3-11.1)
[2022-02-03 08:25] LABS: Magnesium 2.2 mg/dL (1.6-2.6); Potassium 4.9 mEq/L (3.5-5.1)
[2022-02-03] MEDS: Aspirin Enteric Coated 81 MG Tablet PO SCH (08:58)
[2022-02-03] MEDS: Nicotine 21 MG PATCH.TD24 TD SCH (08:58)
[2022-02-03] MEDS: Loratadine 10 MG TABLET PO SCH (08:59)
[2022-02-03] MEDS: Isosorbide MONOnitrate (24 HR) 30 MG TAB.ER.24H PO SCH (08:59)
[2022-02-03] MEDS: *HR* GlipiZIDE XL (24 HR) 10 MG TABLET PO SCH (08:59)
[2022-02-03] MEDS: Pregabalin 25 MG CAPSULE PO SCH (08:59)
[2022-02-03] MEDS: Diclofenac Sodium (DR) 50 MG TABLET.DR PO SCH (08:59)
[2022-02-03] MEDS: Metoprolol XL (24 HR) Succ 50 MG TAB.ER.24H PO SCH (08:59)
[2022-02-03] MEDS: Budesonide/Formoterol 160/4.5 1 PUFF INH IH SCH (09:59)
[2022-02-03] MEDS: Tiotropium 10 INH DOSE IH SCH (10:00)
[2022-02-03 10:11] LABS: BUN/Creatinine Ratio 17 (6-26); Blood Urea Nitrogen 24 mg/dL (8-23); Calcium 8.3 mg/dL (8.6-10.3); Carbon Dioxide 27 mEq/L (23-29); Chloride 90 mEq/L (98-107); Glucose 271 mg/dL (70-105); Osmolality,Calculated 268 (280-300); Potassium 5.3 mEq/L (3.5-5.1); Sodium 122 mEq/L (136-145); eGFR For African Americans > 60 (> 60); eGFR For Non-African Americans 51 (> 60)
== END 2022-02-03 10:00 | disposition home health service (06) ==
LOC: INPPIK 12:05 → EMEROOPIK 12:05 → INPPIK 18:09
PROVIDERS: ADMIT Internal Medicine; ATTEND Internal Medicine